=== PATIENT | male | born 1970 ===

== ENCOUNTER 2018-07-14 17:10 | Emergency (ER) | payer SELFPAY ==
[2018-07-14] MEDS ORDERED: Sodium Chloride 0.9% 1,000 ML IV STA (19:44)
[2018-07-14 20:14] LABS: BASO # 0.1 K/uL (0.0-0.2); BASO % 1.1 % (0.0-2.0); EOS # 0.4 K/uL (0.0-0.7); EOS % 6.7 % (0.0-4.0); LYMPH # 2.3 K/uL (1.0-4.3); LYMPH % 41.8 % (20.0-40.0); MEAN CELL VOLUME 91.6 fl (80.0-94.0); MEAN CORPUSCULAR HEMOGLOBIN 30.6 pg (27.0-31.0); MEAN CORPUSCULAR HGB CONC 33.4 g/dL (33.0-37.0); MEAN PLATELET VOLUME 10.4 fl (7.2-11.7); MONO # 0.3 K/uL (0.0-0.8); NEUT # 2.4 K/uL (1.8-7.0); NEUT % 44.4 % (50.0-75.0); NRBC % 0.1 % (0.0-0.0); RBC 5.22 Mil/uL (4.40-5.90); RED CELL DISTRIBUTION WIDTH 13.5 % (11.5-14.5); WHITE BLOOD COUNT 5.4 K/uL (4.8-10.8)
[2018-07-14 20:20] LABS: VENOUS BLOOD GAS BASE EXCESS -3.1 mmol/L (0.0-2.0); VENOUS BLOOD GAS PCO2 45 mmHg (40-60); VENOUS BLOOD GAS PO2 53 mm/Hg (30-55); VENOUS BLOOD PH 7.32 (7.32-7.43)
[2018-07-14 20:24] LABS: ALB/GLOB RATIO 1.3 (1.0-2.1); ALBUMIN 4.4 g/dL (3.5-5.0); ALT/SGPT 31 U/L (21-72); AST/SGOT 27 U/L (17-59); BLOOD UREA NITROGEN 12 mg/dl (9-20); CALCIUM 8.9 mg/dL (8.4-10.2); GFR NON-AFRICAN AMERICAN > 60
--- NOTE | 2018-07-14 20:34 | ED PDOC ---
Hyperglycemia/Hypoglycemia Time Seen by Provider: 07/14/18 19:34 Chief Complaint (Nursing): High Blood Sugar Chief Complaint (Provider): High Blood Sugar History Per: Patient History/Exam Limitations: no limitations : The patient does not have any of the infectious symptoms listed except for those marked. Additional Complaint(s): Patient is a 48 year old male with history of non-insulin dependant diabetes, who was brought to the emergency department by EMS after being found on sleeping on park bench. Patient reported to triage that he has non-insulin dependant diabetes and that time he denies alcohol or drug use. On evaluation now, patient is lethargic and easily arousable to mild stimulus but has not provided additional information except that he wants to go home. He denies any chest pain, shortness of breath, nausea and vomiting. He continues to deny alcohol or drug use and is falling sleep during exam. PMD: no provider Past Medical History Reviewed: Historical Data, Nursing Documentation, Vital Signs Vital Signs: Last Vital Signs Temp 98.4 F 07/14/18 17:12 Pulse 80 07/14/18 17:12 Resp 16 07/14/18 17:12 BP 114/74 07/14/18 17:12 Pulse Ox 97 07/14/18 17:12 - Medical History PMH: Diabetes - Surgical History Surgical History: No Surg Hx - Family History Family History: States: Unknown Family Hx - Allergies Allergies/Adverse Reactions: Allergies Allergy/AdvReac Type Severity Reaction Status Date / Time No Known Allergies Allergy Verified 07/14/18 17:14 Review of Systems ROS Statement: Except As Marked, All Systems Reviewed And Found Negative Constitutional: Positive for: Other (lethargic) Physical Exam - Reviewed Nursing Documentation Reviewed: Yes Vital Signs Reviewed: Yes - Physical Exam Appears: Positive for: Non-toxic, No Acute Distress Head Exam: Positive for: ATRAUMATIC, NORMOCEPHALIC Skin: Positive for: Normal Color, Warm, Dry Eye Exam: Positive for: Normal appearance, EOMI, PERRL ENT: Positive for: Normal ENT Inspection Neck: Positive for: Normal, Painless ROM, Supple Cardiovascular/Chest: Positive for: Regular Rate, Rhythm. Negative for: Murmur Respiratory: Positive for: Normal Breath Sounds. Negative for: Respiratory Distress Gastrointestinal/Abdominal: Positive for: Normal Exam, Soft. Negative for: Tenderness Back: Positive for: Normal Inspection. Negative for: L CVA Tenderness, R CVA Tenderness, Vertebral Tenderness Extremity: Positive for: Normal ROM. Negative for: Pedal Edema, Deformity Neurological/Psych: Positive for: Alert, Oriented - Laboratory Results Result Diagrams: 07/14/18 20:10 07/14/18 20:10 Lab Results: pO2 53 mm/Hg (30-55) 07/14/18 20:06 VBG pH 7.32 (7.32-7.43) 07/14/18 20:06 VBG pCO2 45 mmHg (40-60) 07/14/18 20:06 VBG HCO3 22.1 mmol/L 07/14/18 20:06 VBG Total CO2 24.6 mmol/L (22-28) 07/14/18 20:06 VBG O2 Sat (Calc) 88.2 % (40-65) H 07/14/18 20:06 VBG Base Excess -3.1 mmol/L (0.0-2.0) L 07/14/18 20:06 VBG Potassium 3.7 mmol/L (3.6-5.2) 07/14/18 20:06 Sodium 143.0 mmol/L (132-148) 07/14/18 20:06 Chloride 106.0 mmol/L (98-107) 07/14/18 20:06 Glucose 186 mg/dL (75-110) H 07/14/18 20:06 Lactate 3.1 mmol/L (0.7-2.1) H 07/14/18 20:06 FiO2 21.0 % 07/14/18 20:06 Total Bilirubin 0.3 mg/dl (0.2-1.3) 07/14/18 20:10 AST 27 U/L (17-59) 07/14/18 20:10 ALT 31 U/L (21-72) 07/14/18 20:10 Alkaline Phosphatase 81 U/L (38-126) 07/14/18 20:10 Total Protein 7.7 G/DL (6.3-8.2) 07/14/18 20:10 Albumin 4.4 g/dL (3.5-5.0) 07/14/18 20:10 Globulin 3.3 gm/dL (2.2-3.9) 07/14/18 20:10 Albumin/Globulin Ratio 1.3 (1.0-2.1) 07/14/18 20:10 - ECG O2 Sat by Pulse Oximetry: 97 (RA) Pulse Ox Interpretation: Normal Medical Decision Making Medical Decision Making: Time: 1943 A/P: Work up for altered mental possibly due to alcohol. Patient found to be hyperglycemic with sugar at 227. Will rule out hyperglycemic complications. Will obtain labs, alcohol level, IV fluids and reevaluate patient. --VBG --Alcohol serum --CMP --CBC with differential --Sodium chloride 1,000 ml --UA Time: 2239 --Patient was found to be intoxicated with an alcohol level of 250. --Patient is now clinically sober and is seen to be ambulatory. --Patient has no signs of intoxication or impairment. --Patient stable for discharge home. Scribe Attestation: Documented by Romeo Robertson, acting as a scribe Nicole Lopez MD. Provider Scribe Attestation: All medical record entries made by the Scribe were at my direction and personally dictated by me. I have reviewed the chart and agree that the record accurately reflects my personal performance of the history, physical exam, medical decision making, and the department course for this patient. I have also personally directed, reviewed, and agree with the discharge instructions and disposition. Disposition - Disposition Disposition Time: 22:40 Forms: [employer] ([employer])
[2018-07-14 23:03] VITALS: BP 107/65; PULSE 66; RESP 18; TEMP 98.3; O2SAT 99
== END 2018-07-14 22:42 | disposition home or self-care (01) ==
LOC: H.ER 17:10
DX: F10.129 Alcohol abuse with intoxication, unspecified (principal); Y90.8 Blood alcohol level of 240 mg/100 ml or more; E11.65 Type 2 diabetes mellitus with hyperglycemia
CPT/HCPCS: 80053; 82803; 82948; 85025; 96360; 99284; G0480; J7030